=== PATIENT | female | born 1970 | race Two or more races ===

== ENCOUNTER 2017-01-07 20:05 | Emergency (ER) | payer BC ==
--- NOTE | 2017-01-08 10:47 | ER ---
ADMIT: 01/07/2017 RM/LOC: ER [facility] MR#: [id number] [id number] [place], [place] [address] [address] [place] [address] Emergency Room Report SEX: F AGE: 46 : 1970 DATE: 01/07/2017 HISTORY OF PRESENT ILLNESS: The patient is a 46-year-old female, with spotting, she states for the last 3 days, worse today. She works at [employer], and is concerned about her . Denies any fever, chills, nausea, vomiting, or diarrhea. REVIEW OF SYSTEMS: Otherwise negative. She has a child who is about 15 or 16 years old and the other one is 5 years old. ALLERGIES: NO ALLERGIES. MEDICATIONS: Takes no medications. She has not had any care at this point. PHYSICAL EXAMINATION: VITAL SIGNS: Blood pressure 154/83 with a heart rate of 88, respirations 18, temp is 98.4, O2 sats 100%. GENERAL: Slightly anxious. Son is translating for her. NECK: Supple. RESPIRATIONS: No distress. ABDOMEN: Low abdominal tenderness. PELVIC: There is no cervical motion tenderness, but vaginal bleeding moderate with clots in the vaginal vault. Oriented x4 and anxious. LABORATORY DATA: Labs pending, quantitative beta HCG type and Rh. UA clean. Gen culture. GC, chlamydia, wet mount. [facility] ultrasound due to abdominal pain and vaginal spotting. Dr. Mtz will speak with patient after we get the labs back. CLINICAL IMPRESSION: Threatened . SANDRA Means / Micky Mtz MD / angiel JOB #: [id number] CC: Micky Mtz MD, Attending Physician Jassi Moe MD, Family Physician
--- NOTE | 2017-01-10 04:09 | ER ---
ADMIT: 01/07/2017 RM/LOC: ER [facility] MR#: [id number] [address] [address] [address] [place] [address] Emergency Room Report SEX: F AGE: 46 : 1970 DATE: 01/07/2017 ADDENDUM: A 46-year-old female, who was originally seen by my physician horticultural nursery assistant, Sandra Orourke, and was checked out to me with results of an ultrasound and blood work pending. Her CBC was unremarkable, and she had an hCG of 1745. Wet mount was done, which was unremarkable other than many red blood cells seen. Ultrasound results had findings consistent with an ectopic. The impression from the radiologist was number; 1. Right adnexal gestational sac and pole compatible with ectopic , medial to the right ovary. 2. Intrauterine gestational sac, although pseudogestational sac could have a similar appearance. No yolk sac identified. 3. Small free fluid around both ovaries. I discussed the patient's symptoms, her lab findings, and ultrasound with Dr. Dooley, who is on-call this evening for OB. As the patient is not having any pain at this time, only having a small amount of bleeding, Dr. Dooley recommends the patient being discharged home to follow up in clinic 1st thing in the morning for a repeat ultrasound and hCG. The patient is given instructions that if she develops any worsening symptoms overnight, she should return to the ER immediately. The patient is discharged home in stable condition. DIAGNOSES: 1. Right ectopic . 2. Possible 2nd intrauterine . 3. Vaginal bleeding. Micky Mtz MD/ jeremie JOB #: [id number] CC: Micky Mtz MD, Attending Physician Jassi Moe MD, Family Physician
== END 2017-01-07 22:30 | disposition home or self-care (01) ==
LOC: ER 20:05
DX: O20.0 Threatened abortion (principal); O00.90 Unspecified ectopic pregnancy without intrauterine pregnancy; Z3A.01 Less than 8 weeks gestation of pregnancy